=== PATIENT | male | born 2000 | race African-American/Black ===

== ENCOUNTER 2024-11-04 10:28 | Outpatient (REF) | payer OTHER, SELFPAY ==
--- NOTE | ~2024-11-04 | XR_ITS ---
EXAMINATION: XR CERVICAL SPINE CLINICAL INFORMATION: M54.2 - Cervicalgia COMPARISON: None available. TECHNIQUE: AP lateral and atlantoodontoid views FINDINGS: Craniocervical junction is intact. No acute cortical disruption or malalignment. No lytic or blastic lesions. Preservation of the intervertebral disc height. Upper airway is patent. XR/XR cervical spine 3V IMPRESSION: No acute fracture or listhesis. Normal exam. Electronically signed by: Gordo Wu MD 11/04/2024 12:40 PM EDT
--- NOTE | ~2024-11-04 | XR_ITS ---
EXAMINATION: XR LUMBOSACRAL SPINE CLINICAL INFORMATION: M54.9 - Dorsalgia, unspecified COMPARISON: None available. TECHNIQUE: AP and lateral views FINDINGS: Rudimentary ribs at L1. No acute cortical disruption or malalignment. Mild levoconvex curvature apex at L4. No lytic or blastic lesions. XR/XR lumbar spine 2-3V IMPRESSION: No acute fracture or listhesis. Mild levoconvex curvature which could be positional. Electronically signed by: Gordo Wu MD 11/04/2024 12:41 PM EDT
--- NOTE | ~2024-11-04 | XR_ITS ---
EXAMINATION: XR SHOULDER, RIGHT CLINICAL INFORMATION: M25.511 - Pain in right shoulder COMPARISON: None available. TECHNIQUE: AP and Y-view projection of the right shoulder. FINDINGS: No acute cortical disruption or malalignment. No lytic or blastic lesions. No soft tissue calcifications. XR/XR shoulder RT min 2V IMPRESSION: Normal x-ray right shoulder. Electronically signed by: Gordo Wu MD 11/04/2024 12:32 PM EDT
== END 2024-11-04 10:29 | disposition home or self-care (01) ==
LOC: HO.HOSX 10:28
PROVIDERS: Visit Provider Physical Medicine & Rehabilitation
DX: G89.29 Other chronic pain (principal); M54.12 Radiculopathy, cervical region; M25.511 Pain in right shoulder; M54.50 Low back pain, unspecified
CPT/HCPCS: 72040; 72100; 73030; 99202

== ENCOUNTER 2024-11-04 10:28 | Outpatient (AMB) | payer OTHER, SELFPAY ==
--- NOTE | 2024-11-04 10:31 | A.OFFVIS_ITS ---
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 Patient was referred by Arlene 06/28/24, at their visit they discussed that patient's job requires him to look up for long periods of time. Patient reports that his neck ROM is limited due to the pain. At today's visit he states that ever since the injury his right side of his neck pain and lower back pain is very sporadic. He states that the right side of his neck into the right shoulder pain flairs up with certain movements and radiates down to the hand. He then added that the right lower back pain only flairs up wi th over use but does not radiate. Patient states that he did attend physical therapy, but no injections or X Ray's were done. Allergies Seasonal Allergies Allergy (Mild, Verified 11/04/24 10:39) Sneezing Medication List - Last Reconciled 11/04/24 by Batsheva Avalos MD No Known Home Meds HPI Comments Details: Reports injury reported earlier this year (patient cannot remember exactly), perhaps February 2024. 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 Main issue is right sided neck pain and shoulder pain. Radiates to right upper arm/elbow with tingling, not lower than elbow. No numbness on fingers. 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 Right shoulder ROM is full. Lower back pain is not just sporadic, usually because of the pain higher up. No imaging done. Been off work. No PT since February. He did have PT December-January 2024. 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 Patient was appropriately conversant and oriented. Good historian. MSK: Inspection reveals appropriate head and neck positioning. No pain with palpation over the neck musculature. Indicated tenderness over right upper trapezius but no palpable trigger point. Cervical ROM was full. Spurling's sign negative. Negative scapular winging. Question positive right Estrada sign. Could not do right empty can sign. Negative speed's test. Right shoulder range of motion is full. Strength is 5/5 in all muscle groups tested. No increased tone noted. Neurological: Neurologic examination of the upper and lower extremities was nonfocal with intact sensation, muscle stretch reflexes and without focal motor deficits . Williamson?s negative bilaterally. Babinski was down going bilaterally. Clonus was negative. Gait is non-antalgic without loss of balance. Vital Signs: BMI result Body Mass Index 20.1 Assessment & Plan Assessment & Plan (1) Right shoulder pain: Code(s): M25.511 - Pain in right shoulder Category: Medical Qualifiers: Chronicity: chronic Qualified Code(s): M25.511 - Pain in right shoulder; G89.29 - Other chronic pain (2) Radiculitis of right cervical region: Code(s): M54.12 - Radiculopathy, cervical region Category: Medical (3) Lower back pain: Code(s): M54.50 - Low back pain, unspecified Category: Medical Qualifiers: Chronicity: chronic Back pain laterality: midline Sciatica presence: without sciatica Qualified Code(s): M54.50 - Low back pain, unspecified; G89.29 - Other chronic pain Plan Right shoulder and neck pain. Suspect these are separate entities. No signs of cervical myelopathy. Possible that the right shoulder pain is the main issue. Sending for cervical and shoulder x-rays today. Referring to PT to work on right shoulder and upper trapezius. Sending for lumbar x-rays as well. Assessment and plan discussed with patient, and patient was agreeable. All questions were answered thoroughly. Follow up 2 months. Batsheva Avalos MD, ELIDA Board Certified, [place] Board of Physical Medicine and Rehabilitation (ABPMR) Board Certified, [place] Board of Electrodiagnostic Medicine (ABEM) Orders: Orders XR shoulder RT min 2V Today M25.511 - Pain in right shoulder, M54.12 - Radiculopathy, cervical region, M54.50 - Low back pain, unspecified XR cervical spine 3V Today M25.511 - Pain in right shoulder, M54.12 - Radiculopathy, cervical region, M54.2 - Cervicalgia, M54.50 - Low back pain, unspecified PT Evaluation and Treatment Today M25.511 - Pain in right shoulder, M54.12 - Radiculopathy, cervical region XR lumbar spine 2-3V Today M25.511 - Pain in right shoulder, M54.12 - Radiculopathy, cervical region, M54.50 - Low back pain, unspecified, M54.9 - Dorsalgia, unspecified Coding Level of Care Code New Pt Level 4 (24922) Diagnoses Chronic right shoulder pain M25.511; G89.29 Chronicity: chronic Radiculitis of right cervical region M54.12 Chronic midline low back pain without sciatica M54.50; G89.29 Chronicity: chronic Back pain laterality: midline Sciatica presence: without sciatica
[2024-11-04 10:38] VITALS: BMI 20.1
--- OUTSIDE RECORDS SUMMARY | 2024-11-04 12:27 | XMS_ITS | Clinical Summary ---
Author Organization [facility] ity Address [address] [place] [address] Care Team Providers Care Space Planner Name Role Phone Unavailable Primary Care Provider Unavailabl e Social History Tobacco Use Types Packs/Day Years Used Date Smoking Tobacco: Never Assessed Sex and Gender Information Value Date Recorded Sex Assigned at Not on file Legal Sex Male 2:47 PM EST Gender Identity Not on file Sexual Orientation Not on file Plan of Treatment Health Maintenance Due Date Last Done Comments HPV Vaccines (1 - Male 3-dos e series) 2014 DTaP,Tdap,and Td Vaccines (1 - Tdap) 2018 Hepatitis B Vaccines (1 of 3 - 19+ 3-dose series) 2018 Depression Screening 02/18/2024 COVID-19 Vaccine (1 - 2023-2 5 season) 2024 Influenza Vaccine (#1) 2024 HIB Vaccines Aged Out No longer eligi ble based on patient's age to complete this topic Hepatitis A Vaccines Aged Out No long er eligible based on patient's age to complete this topic IPV Vaccines Aged Out No longer eligi ble based on patient's age to complete this topic MMR Vaccines Aged Out No longer eligi ble based on patient's age to complete this topic Meningococcal ACWY Vaccine Aged Out N o longer eligible based on patient's age to complete this topic Meningococcal B Vaccine Aged Out No l onger eligible based on patient's age to complete this topic Pneumococcal Vaccine: Pediat rics (0 to 5 Years) and At-Risk Patients (6 to 49 Years) Aged Out No longer eligible b ased on patient's age to complete this topic RSV Immunization Patients Un elmer 20 months Aged Out No longer eligible b ased on patient's age to complete this topic Varicella Vaccines Aged Out No longer eligible based on patient's age to complete this topic
== END 2024-11-04 12:10 | disposition home or self-care (01) ==
LOC: HO.HOS 10:29
PROVIDERS: Visit Provider Physical Medicine & Rehabilitation
DX: M25.511 Pain in right shoulder (principal); G89.29 Other chronic pain; M54.12 Radiculopathy, cervical region; M54.50 Low back pain, unspecified
CPT/HCPCS: 99203

== ENCOUNTER → 2024-11-04 11:03 | Outpatient (BNV) | payer OTHER, SELFPAY | PROVIDERS: Visit Provider Radiology Diagnostic Radiology | DX: M54.2 Cervicalgia (principal); M54.9 Dorsalgia, unspecified; M25.511 Pain in right shoulder | CPT/HCPCS: 72040; 72100; 73030 ==

== ENCOUNTER 2025-01-07 09:00 | Outpatient (AMB) | payer OTHER, SELFPAY ==
--- NOTE | 2025-01-07 09:02 | MHC.OFFVIS ---
Vital Signs 01/07/25 09:04 Height 5 ft 9 in Weight 135 lb BMI 19.9 Intake Visit Reasons: OV- Neck/ back pain WC DOI 10/23/23 Intake Note: Som is a 24 year old male who presents today as a follow up for his right shoulder pain, WC DOI 10/23/23. At last visit he was referred to PT to work on right shoulder and upper trapezius. At today's visit he reports that physical therapy is going well and that he has six more appointments left. Patient states that for the past month he has not worked for his company. Allergies Seasonal Allergies Allergy (Mild, Verified 11/04/24 10:39) Sneezing Medication List - Last Reconciled 01/07/25 by Batsheva Avalos MD No Known Home Meds HPI Comments Details: Last seen 11/04/2024, complain of both right shoulder and neck pain. X-rays have been unremarkable for shoulder and cervical. Essentially unremarkable lumbar x-ray as well. Has been going to PT with good results. Reviewed PT notes. Pain score 5.5/10 now. Pain would be posterior neck mostlyi but not radiating to arm. No numbness. Full ROM. 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 Patient was appropriately conversant and oriented. Good historian. MSK: Inspection reveals appropriate head and neck positioning. No pain with palpation over the neck musculature. Cervical ROM was full. Spurling's sign negative. Negative scapular winging. Mild positive right Estrada sign. Crepitus noted on right shoulder. Empty can sign negative. Negative speed's test. Right shoulder range of motion is full. Strength is 5/5 in all muscle groups tested. No increased tone noted. Neurological: Neurologic examination of the upper and lower extremities was nonfocal with intact sensation, muscle stretch reflexes and without focal motor deficits . Williamson?s negative bilaterally. Gait is non-antalgic without loss of balance. Vital Signs: BMI result Body Mass Index 19.9 Results Reviewed Results Reviewed: Ordering Physician: Batsheva Brown Date of Service: 11/04/24 Procedure(s): XR shoulder RT min 2V Accession Number(s): [id number] cc: Physician,None ; Batsheva Hernandez Reason for Exam: M25.511 - Pain in right shoulder EXAMINATION: XR SHOULDER, RIGHT CLINICAL INFORMATION: M25.511 - Pain in right shoulder COMPARISON: None available. TECHNIQUE: AP and Y-view projection of the right shoulder. FINDINGS: No acute cortical disruption or malalignment. No lytic or blastic lesions. No soft tissue calcifications. XR/XR shoulder RT min 2V IMPRESSION: Normal x-ray right shoulder. Electronically signed by: Gordo Wu MD 11/04/2024 12:32 PM EDT RP Ordering Physician: Bastheva Brown Date of Service: 11/04/24 Procedure(s): XR lumbar spine 2-3V Accession Number(s): [id number] cc: Physician,None ; Batsheva eHrnandez Reason for Exam: M54.9 - Dorsalgia, unspecified EXAMINATION: XR LUMBOSACRAL SPINE CLINICAL INFORMATION: M54.9 - Dorsalgia, unspecified COMPARISON: None available. TECHNIQUE: AP and lateral views FINDINGS: Rudimentary ribs at L1. No acute cortical disruption or malalignment. Mild levoconvex curvature apex at L4. No lytic or blastic lesions. XR/XR lumbar spine 2-3V IMPRESSION: No acute fracture or listhesis. Mild levoconvex curvature which could be positional. Electronically signed by: Gordo Wu MD 11/04/2024 12:41 PM EDT RP Ordering Physician: Batsheva Brown Date of Service: 11/04/24 Procedure(s): XR cervical spine 3V Accession Number(s): [id number] cc: Physician,None ; aBtsheva Hernandez Reason for Exam: M54.2 - Cervicalgia EXAMINATION: XR CERVICAL SPINE CLINICAL INFORMATION: M54.2 - Cervicalgia COMPARISON: None available. TECHNIQUE: AP lateral and atlantoodontoid views FINDINGS: Craniocervical junction is intact. No acute cortical disruption or malalignment. No lytic or blastic lesions. Preservation of the intervertebral disc height. Upper airway is patent. XR/XR cervical spine 3V IMPRESSION: No acute fracture or listhesis. Normal exam. Electronically signed by: Gordo Wu MD 11/04/2024 12:40 PM EDT RP Assessment & Plan Assessment & Plan (1) Right shoulder pain: Code(s): M25.511 - Pain in right shoulder Category: Medical Qualifiers: Chronicity: chronic Qualified Code(s): M25.511 - Pain in right shoulder; G89.29 - Other chronic pain Plan Right shoulder pain much improved with physical therapy. No signs of rotator cuff injury nor cervical radiculopathy on exam today. Finish course of PT. Advised to continue home exercises. Assessment and plan discussed with patient, and patient was agreeable. All questions were answered thoroughly. Follow up 3 months. Batsheva Avalos MD, ELIDA Board Certified, [place] Board of Physical Medicine and Rehabilitation (ABPMR) Board Certified, [place] Board [employer] Electrodiagnostic Medicine (ABEM) Coding Level of Care Code Est Pt Level 4 (12282) Diagnoses Chronic right shoulder pain M25.511; G89.29 Chronicity: chronic
[2025-01-07 09:04] VITALS: BMI 19.9
--- OUTSIDE RECORDS SUMMARY | 2025-01-07 09:18 | XMS_ITS | Clinical Summary ---
Author Organization [facility] ity Address [address] [place] [address] Care Team Providers Care Supervisor Quilting Name Role Phone Unavailable Primary Care Provider [...] Depression Screening 02/18/2024 COVID-19 Vaccine (1 - 2024-2 6 season) 2024 Influenza Vaccine (#1) 2024 RSV Immunization Adult Patie nts (1 - 1-dose 75+ series) 2074 HIB Vaccines Aged Out No longer eligi [...]
== END 2025-01-07 09:27 | disposition home or self-care (01) ==
LOC: HO.HOS 09:01
PROVIDERS: Visit Provider Physical Medicine & Rehabilitation
DX: M25.511 Pain in right shoulder (principal); G89.29 Other chronic pain
CPT/HCPCS: 99213

== ENCOUNTER → 2025-01-07 09:00 | Outpatient (BNVA) | payer OTHER, SELFPAY | PROVIDERS: Visit Provider Physical Medicine & Rehabilitation | DX: M54.2 Cervicalgia (principal); M25.511 Pain in right shoulder; G89.29 Other chronic pain | CPT/HCPCS: 99212 ==

== ENCOUNTER 2025-02-03 11:01 | Outpatient (RCR) | payer OTHER, SELFPAY ==
--- NOTE | 2024-12-24 13:56 | MHC.PT.EP ---
[facility] [place] [facility] [place] [facility] [place] Office [address] Lorenza Cobb [address] [phone] F: [phone] F: [phone] F: [phone] F: [phone] Physical Therapy Plan of Care Date of Evaluation: 12/22/24 Date of Surgery: Diagnosis: R shoulder pain, radiculopathy cervical. 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 he reports his condition is resulting in decreased tolerance for looking down, reading, laying on his R side, placing objects on high shelves, lifting and carrying objects of weight, as well as heavy HH chores. Reports he has not been able to perform fitness and recreation activities. Pt is deemed an appropriate candidate to receive skilled PT services to address their physical impairments in order to improve their functional ability. Frequency and Duration: The patient will be seen 2 x/ wk x 6 wks. Short Term Goals: initiate home program. Pt will improve baseline pain to < 6/10; initial: 8/10. Pt will have centralized his radicular Sx. Penitentiary Goals: I with home program. Pt will be able to place objects on high shelf with managed Sx. Pt will demonstrate symmetrical cervical rotation; initial: limited R rotation. Pt will improve SPADI outcome measure by at least 13 points. Pt will improve R shoulder ER strength by at least 1/2 MMT grade. Pt will demonstrate full cervical extension ROM. Treatment Plan: Modalities to reduce pain, spasms and effusion. Manual therapy to restore motion and function. Therapeutic exercise to improve strength and flexibility. Neuromuscular re-education for posture and balance. Therapeutic activities to return to functional activities of daily living. Electronically signed by: Magdy Rainey PT. Please sign and return to therapist. Thank you for your referral.
--- NOTE | 2025-02-03 15:03 | MHC.PT.DC ---
[facility] [place] [facility] [place] Office [address] Lorenza Cobb [address] [phone] F: [phone] F: [phone] F: [phone] F: [phone] Physical Therapy Discharge Report Diagnosis: R shoulder pain, radiculopathy cervical. Date of Surgery: Date of Evaluation: 12/22/24 Date of Discharge: Treatments to Date: 12 Cancellations to Date: No Shows to Date: Discharge Status: Discharge Summary: Som has been an active and motivated participant in his therapy in and out of the clinic; he has become I with a home program of cervical and R shoulder mobility, stability, and posture; He has met many but not all of his therapeutic goals; he reports he's about 30% improved of his condition and persists with some cervical and R shoulder pain and instability. He is discharged to his home program which he is comfortable with. Electronically signed by: Please sign and return to therapist. Thank you for your referral.
--- NOTE | 2025-02-03 15:40 | MHC.PT.DC ---
[facility] [place] Office [place] Office [place] Office [address] Lorenza Cobb [address] [phone] F: [phone] F: [phone] F: [phone] F: [phone] Physical Therapy Discharge Report Diagnosis: R shoulder pain, radiculopathy cervical. Date of Surgery: Date of Evaluation: 12/22/24 Date of Discharge: 02/03/25 Treatments to Date: 12 Cancellations to Date: No Shows to Date: Discharge Status: Improved Function Independent with HEP Recommend MD Follow-up Discharge Summary: Som has been an active and motivated participant in his therapy in and out of the clinic; he has become I with a home program of cervical and R shoulder mobility, stability, and posture; He has met many but not all of his therapeutic goals; he reports he's about 30% improved of his condition and persists with some cervical and R shoulder pain and instability. He is discharged to his home program which he is comfortable with. Electronically signed by: Magdy Rainey PT. Please sign and return to therapist. Thank you for your referral.
== END 2025-02-03 15:39 | disposition home or self-care (01) ==
LOC: HO.PT 11:01
PROVIDERS: Visit Provider Physical Medicine & Rehabilitation
DX: M25.511 Pain in right shoulder (principal); M54.12 Radiculopathy, cervical region
CPT/HCPCS: 97012; 97014; 97110; 97140; 97161; 97530